=== PATIENT | female | born 2005 | race Hispanic/Latino ===

== ENCOUNTER 2025-07-08 17:27 | Emergency (ER) | payer BC ==
[~2025-07-08] VITALS: Ht 154.9 cm; Wt 62.1 kg
--- NOTE | 2025-07-08 17:36 | ERN ---
General Chief Complaint: Abdominal Pain Stated Complaint: RLQ PAIN Time Seen by MD: 17:29 Time Seen by Midlevel: 17:29 Source: patient History of Present Illness Initial Comments 20-year-old female with no significant past medical history presenting to the emergency department for evaluation of right lower quadrant abdominal pain that initially started on July 04, 2025 but resolved that same day. Today the patient states the pain returned. Denies any other associated symptoms. She specifically denies any fever, chills, dysuria, hematuria, or any other symptoms at this time. She reports being on control but has been off of it for this month. Denies being . Allergies: Coded Allergies: No Known Allergies (Unverified Allergy, Unknown, 07/08/25) Past Medical History Past Medical History: No Pertinent History Past Surgical History: None Female( History) LMP: Jun 26, 2025 ROS Dictation CONSTITUTIONAL: Negative except for HPI HEAD/FACE: Negative except for HPI EENT: Negative except for HPI RESPIRATORY: Negative except for HPI GASTROINTESTINAL/ABDOMINAL: Negative except for HPI GENITOURINARY: Negative except for HPI MUSCULOSKELETAL: Negative except for HPI INTEGUMENTARY: Negative except for HPI NEUROLOGICAL/PSYCH: Negative except for HPI HEMATOLOGIC/LYMPHATIC: Negative except for HPI All Systems Negative, Except as noted above. 13 point review of systems assessed and all negative except for above. Physical Exam Physical Exam Dictation Vital Signs reviewed General Appearance: Alert, oriented x 3, no acute distress, well developed, nour ished. Head and Face: non-traumatic. Eyes: PERRL, pink conjunctivas, eyelid no trauma, anterior chamber with arcus senilis. Ears: Pinnas intact and no signs of trauma or erythema ear canals clear and no discharge TM no erythema Nose: No discharge, no bleeding. Oropharynx: Mouth normal, tongue pink, pharynx clear,no erythema, tonsils no exudates, no abscesses noted, mucous mem brane moist Neck: Supple, non-tender, no thyromegaly, no masses, no JVD, no bruits Breast:Deferred Chest:No tenderness, no crepitus, no paradoxical movement, no retractions Lungs:Clear, well-ventilated, symmetric, no rales, no wheezing, no rhonchi, no stridor, good breath sounds bilaterally Heart: Regular rate, regular rhythm, no murmur, no gallops Vascular: no peripheral edema, Abdomen: Soft, positive bowel sounds, nondistended, no guarding, Right lower quadrant abdominal tenderness, no rebound, no masses no hepatomegaly, no splenomegaly, no Shi's sign, no hernias. Rectal: Deferred Genital: Deferred Neurological: Normal speech, motor function intact, sensory function intact Musculoskeletal: Neck nontender, full range of motion, back nontender, full range of motion, Extremities: nontender, full range of motion Skin: Color pink, dry, no turgor, no rash, no lacerations, no abrasions, no contusions. Lymphatic: Deferred Results Laboratory and Microbiology Lab and Micro Result Laboratory Tests Test 07/08/25 17:49 White Blood Count 10.4 K/uL (4.8-10.8) Red Blood Count 4.44 MIL/uL (4.00-5.50) Hemoglobin 12.7 g/dL (12.0-16.0) Hematocrit 39.2 % (36-48) Mean Corpuscular Volume 88.3 fL (80-100) Mean Corpuscular Hemoglobin 28.6 pg (27.0-33.0) Mean Corpuscular Hemoglobin Concent 32.4 g/dL (32.0-36.0) Red Cell Distribution Width 12.6 % (11.0-15.5) Platelet Count 342 K/uL (130-400) Mean Platelet Volume 9.7 fL (7.5-10.5) Immature Granulocyte % (Auto) 0.2 % (0-1) Neutrophils (%) (Auto) 57.1 % (40.0-77.0) Lymphocytes (%) (Auto) 32.6 % (21.0-51.0) Monocytes (%) (Auto) 6.6 % (3.0-13.0) Eosinophils (%) (Auto) 3.0 % (0.0-8.0) Basophils (%) (Auto) 0.5 % (0.0-5.0) Neutrophils # (Auto) 6.0 K/uL (1.8-7.7) Lymphocytes # (Auto) 3.4 K/uL (1.0-4.8) Monocytes # (Auto) 0.7 K/uL (0.1-1.0) Eosinophils # (Auto) 0.31 K/uL (0.00-0.70) Basophils # (Auto) 0.05 K/uL (0.00-0.20) Absolute Immature Granulocyte (auto 0.02 K/uL (0-1) Nucleated Red Blood Cells 0.0 % (0.0-0.19) Sodium Level 139 mmol/L (136-145) Potassium Level 3.3 mmol/L (3.5-5.1) L Chloride Level 104 mmol/L (101-111) Carbon Dioxide Level 24 mmol/L (21-32) Blood Urea Nitrogen 12 mg/dL (7-18) Creatinine 0.7 mg/dL (0.5-1.0) Glomerular Filtration Rate Calc 126 mL/min (>90) Random Glucose 117 mg/dL (70-105) H Total Calcium 8.7 mg/dL (8.5-10.1) Serum Test, Qualitative NEGATIVE (NEGATIVE) Labs Reviewed?: Yes MDM MDM: Differential diagnosis: Acute appendicitis, constipation, urinary tract infection, , ectopic There are no social concerns with this patient. Prescription drug management Prescriptions will include: MiraLax Medical management and examination interpretation discussions were had by me with other qualified healthcare professionals as indicated for the patient's care. ED Course Orders Procedure Category Date Status Time Cbc With Differential LAB 07/08/25 Complete 17:36 Basic Metabolic Panel LAB 07/08/25 Complete 17:36 Testing, LAB 07/08/25 Complete Serum Hcg 17:36 Ct Abdomen/Pelvis CT 07/08/25 Resulted W/Contrast 18:45 Iohexol (Omnipaque) PHA 07/08/25 Complete 22:03 Current Medications Medications (Trade) Dose Ordered Sig/[place]ton Route PRN Reason Start Time Stop Time Status Last Admin Dose Admin Iohexol (Omnipaque) 35,000 mg STK-MED ONCE IV 07/08/25 22:03 07/08/25 22:03 DC Vital Signs Date Time Temp Pulse Resp B/P (MAP) Pulse Ox O2 Delivery O2 Flow Rate FiO2 07/08/25 17:28 99.7 111 18 146/72 99 Room Air 0 DX & DISP Disposition: Discharge Departure Impression: Primary Impression: Constipation Condition: Stable Scripts Polyethylene Glycol 3350 (Miralax) 17 Gram Powd.pack 17 GM PO DAILY for constipation, #20 PACKET 0 Refills Prov: KEDAR CLEMONS 07/08/25 Additional Instructions: Your blood work today is unremarkable. Your CT scan of the abdomen/pelvis with contrast reveals no evidence of acute appendicitis. Your uterus appeared normal on CT scan. Your test is negative. There was a large amount of stool noted in the colon consistent with constipation. Otherwise your CT scan is normal. Referrals: SELF,REFERRAL (PCP) Time of Disposition: 22:43 I have reviewed the case, and I agree with, Diagnosis and Plan I performed the substantive portion of the visit. I have reviewed and jackie laura made and approve the management plan that is documented in the note by myself or the EMILY. I acknowledge for responsibility for the patient's management plan. KEDAR CLEMONS Jul 08, 2025 17:36
[2025-07-08 17:55] LABS: IMMATURE GRANULOCYTE ABSOLUTE 0.02 K/uL (0-1); NUCLEATED RED BLOOD CELLS 0.0 % (0.0-0.19); PLATELET COUNT (AUTO) 342 K/uL (130-400); RED BLOOD CELL COUNT(AUTO) 4.44 MIL/uL (4.00-5.50); RED CELL DISTRIBUTION WIDTH 12.6 % (11.0-15.5); WHITE BLOOD COUNT (AUTO) 10.4 K/uL (4.8-10.8)
[2025-07-08 18:04] LABS: CREATININE 0.7 mg/dL (0.5-1.0); GLOMERULAR FILTR. RATE CALC 126.0 mL/min (>90); GLUCOSE,RANDOM 117.0 mg/dL (70-105); SODIUM SERUM 139.0 mmol/L (136-145); UREA NITROGEN, BLOOD 12.0 mg/dL (7-18)
[2025-07-08] MEDS ORDERED: IOHEXOL 350 MG/ML 100ML INFUS..BTL IV ONE (22:03)
--- NOTE | 2025-07-08 22:11 | NUR ---
TAKEN TO CT SCAN
--- NOTE | 2025-07-08 22:14 | NUR ---
PT AT CT SCAN AT THIS TIME.
--- NOTE | 2025-07-08 22:35 | HMCIMG ---
EXAM: CT Abdomen and Pelvis with Intravenous Contrast CLINICAL HISTORY: 20-year-old female with right lower quadrant abdominal pain, rule out appendicitis. TECHNIQUE: Axial computed tomography images of the abdomen and pelvis with intravenous contrast. Dose reduction technique was used including one or more of the following: automated exposure control, adjustment of mA and kV according to patient size, and/or iterative reconstruction. CONTRAST: With intravenous contrast, specifically the type and amount were not provided. COMPARISON: None provided. FINDINGS: LUNG BASES: No basilar airspace consolidation or pleural effusion. LIVER: Unremarkable. GALLBLADDER AND BILE DUCTS: Unremarkable. No calcified stone. No ductal dilation. PANCREAS: Unremarkable. SPLEEN: Unremarkable. ADRENAL GLANDS: Unremarkable. KIDNEYS, URETERS, AND BLADDER: Unremarkable. Symmetric excretion of contrast is noted in both kidneys. No hydronephrosis or nephrolithiasis. No ureteral or bladder calculi. STOMACH AND BOWEL: A large amount of stool is present in the colon. No obstruction. No wall thickening. No CT evidence of colitis or acute diverticulitis. APPENDIX: No CT evidence for appendicitis. No secondary signs of appendicitis. PERITONEUM: No free fluid. No free air. LYMPH NODES: No lymphadenopathy. REPRODUCTIVE: The uterus and adnexa are unremarkable. VASCULATURE: No aortic aneurysm. ABDOMINAL WALL AND SOFT TISSUES: Unremarkable. BONES: No fracture or suspicious osseous abnormality. IMPRESSION: 1. No CT evidence of appendicitis. /[place]
[2025-07-08] MEDS ORDERED: POLY17PO4 PO (22:44)
[2025-07-08 23:15] VITALS: BP 124/74; PULSE 78; RESP 18; TEMP 98.4; O2SAT 98
== END 2025-07-08 23:17 | disposition home or self-care (01) ==
LOC: EDBD 17:27 → EDH 17:27
DX: K59.00 Constipation, unspecified (principal); Z79.3 Long term (current) use of hormonal contraceptives
CPT/HCPCS: 99284; 74177; 80048; 84703; 85025; 36415; Q9967